=== PATIENT | male | born 1990 | race Caucasian/White ===

== ENCOUNTER 2017-06-05 07:36 | Emergency (ER) | payer OTHER ==
[~2017-06-05] VITALS: Ht 167.6 cm; Wt 118.2 kg
[2017-06-05] MEDS ORDERED: KETOROLAC TROMETHAMINE 60 MG/2 ML VIAL IM ONE (11:00)
[2017-06-05 12:20] VITALS: BP 147/90
== END 2017-06-05 12:30 | disposition home or self-care (01) ==
LOC: EMS 07:37
DX: H60.91 Unspecified otitis externa, right ear (principal); H66.91 Otitis media, unspecified, right ear; F17.210 Nicotine dependence, cigarettes, uncomplicated
CPT/HCPCS: 96372; 99283; J1885

== ENCOUNTER 2020-11-16 08:09 | Emergency (ER) | payer MEDICAID, OTHER ==
[~2020-11-16] VITALS: Ht 167.6 cm; Wt 90.9 kg
[2020-11-16 08:11] VITALS: BP 133/112
[2020-11-16] MEDS ORDERED: METH-812 PO (08:14)
[2020-11-16] MEDS ORDERED: LIDO700A15 TP (08:15)
[2020-11-16] MEDS ORDERED: DIAZEPAM 5 MG TABLET PO ONE (09:00)
[2020-11-16] MEDS ORDERED: LIDOCAINE 5% TRANSDERMAL PATCH TD ONE (09:00)
[2020-11-16] MEDS ORDERED: KETOROLAC TROMETHAMINE 30 MG/ML VIAL IM ONE (09:00)
[2020-11-16] MEDS ORDERED: ACETAMINOPHEN 500 MG TABLET PO ONE (09:00)
== END 2020-11-16 10:55 | disposition home or self-care (01) ==
LOC: EMS 08:12
DX: G57.02 Lesion of sciatic nerve, left lower limb (principal); F17.210 Nicotine dependence, cigarettes, uncomplicated; Z88.5 Allergy status to narcotic agent
CPT/HCPCS: 96372; 99284; J1885

== ENCOUNTER 2023-04-21 13:29 | Emergency (ER) | payer MEDICAID, OTHER ==
[~2023-04-21] VITALS: Ht 177.8 cm; Wt 86.4 kg
[~2023-04-21 13:29] MED LIST: LIDO700A15 TP; METH-812 PO
[2023-04-21 13:34] VITALS: TEMP 98
[2023-04-21 16:30] VITALS: BP 135/80; PULSE 90; RESP 12
[2023-04-21] MEDS: PERTUSS(ACELL),DIPH,TET VAC/PF 0.5 ML SYRINGE IM. ONE (16:36)
== END 2023-04-21 16:47 | disposition home or self-care (01) ==
LOC: EMS 13:29
DX: S00.81XA Abrasion of other part of head, initial encounter (principal); F17.210 Nicotine dependence, cigarettes, uncomplicated; Z88.8 Allergy status to other drugs, medicaments and biological substances; Y04.8XXA Assault by other bodily force, initial encounter; Y93.89 Activity, other specified; Y92.89 Other specified places as the place of occurrence of the external cause; Y99.8 Other external cause status
CPT/HCPCS: 70450; 70486; 82962; 90471; 90715; 99285